=== PATIENT | female | born 1940 | race Caucasian/White ===

== ENCOUNTER 2025-10-10 12:17 | Outpatient (CLI) | payer MEDICARE, BC | END 2025-10-10 12:18 | disposition home or self-care (01) | LOC: BICMAMMO 12:17 | PROVIDERS: ATTEND Internal Medicine | DX: M85.89 Other specified disorders of bone density and structure, multiple sites (principal); M81.0 Age-related osteoporosis without current pathological fracture | CPT/HCPCS: 77080 ==